=== PATIENT | female | born 1945 | race Caucasian/White ===

== ENCOUNTER → 2019-03-19 13:52 | Outpatient (CLI) | payer MEDICARE, OTHER, SELFPAY ==
--- NOTE | 2019-03-19 | DI.MG.S_ITS ---
BILATERAL DIGITAL SCREENING MAMMOGRAM 3D/2D WITH CAD: 03/19/2019 CLINICAL: Routine screening. Family history of breast cancer. Comparison is made to exams dated: 01/14/2018 mammogram, 12/15/2016 mammogram, and 11/26/2015 mammogram - [facility]. There are scattered fibroglandular elements in both breasts. Current study was also evaluated with a Computer Aided Detection (CAD) system. No significant masses, calcifications, or other findings are seen in either breast. There has been no significant interval change. IMPRESSION: NEGATIVE There is no mammographic evidence of malignancy. A 1 year screening mammogram is recommended. This exam was interpreted at Station ID: [id number]. NOTE: For mammograms, a report in lay terms will be sent to the patient. Approximately 15% of breast malignancies will not be visualized mammographically. In the management of a palpable breast mass, a negative mammogram must not discourage biopsy of a clinically suspicious lesion. Electronically Signed By: Sapna avalos/rafael:03/19/2019 22:14:07 letter sent: Normal Exam ACR BI-RADS Category 1: Negative 3341F
== END ==
PROVIDERS: Visit Provider Internal Medicine
DX: Z12.31 Encounter for screening mammogram for malignant neoplasm of breast (principal); Z80.3 Family history of malignant neoplasm of breast
CPT/HCPCS: 77063; 77067

== ENCOUNTER → 2019-09-01 12:43 | Outpatient (CLI) | payer MEDICARE, OTHER, SELFPAY | PROVIDERS: PCP Student in an Organized Health Care Education/Training Program; Visit Provider Student in an Organized Health Care Education/Training Program | DX: Z78.0 Asymptomatic menopausal state (principal); R29.890 Loss of height; Z82.62 Family history of osteoporosis | CPT/HCPCS: 77080 ==

== ENCOUNTER 2019-11-08 17:27 | Emergency (ER) | payer MEDICARE, OTHER, SELFPAY ==
[2019-11-08 17:37] VITALS: BP 159/94; PULSE 62; RESP 16; TEMP 36.6; O2SAT 99; BMI 24.7
--- NOTE | 2019-11-08 18:35 | ED.WOUNDLAC ---
HPI - Wound/Laceration <SAI Rothman - Last Filed: 11/08/19 18:48> General Chief Complaint: Wound/Laceration Stated Complaint: laceration to thumb of left hand Time Seen by Provider: 11/08/19 17:34 Mode of arrival: Ambulatory Limitations: no limitations History of Present Illness HPI narrative: This is a pleasant 74 year female, nonsmoker, who presents to ED with significant other with chief complain of laceration to left radial aspect of thumb from a knife 30 minutes [employer]. Patient states when she trying to slice a hard cheese, it slipped from her hand and accidently cut her left thumb with a knife which was held by the right hand. Patient states she is able to move her fingers but has difficult time stop it to bleed. She thinks her tetanus immunization is up to date and states will follow-up with her primary care and declined to update this today. Review of Systems <SAI Rothman - Last Filed: 11/08/19 18:48> Review of Systems Narrative: General: Denies fever, chills, fatigue, malaise, sweats. HEENT: Denies sinus pain, ear pain, sore throat, difficulty swallowing, dizziness. Respiratory: Denies dyspnea, cough, wheezing, hemoptysis, sputum. Cardiovascular: Denies chest pain, palpitations, orthopnea, edema. Gastrointestinal: Denies nausea, vomiting, abdominal pain, diarrhea, constipation, melena. : Denies dysuria, frequency, incontinence, hematuria, urinary retention. Musculoskeletal: Denies weakness, joint pain or bony pain. Skin: See HPI Neurologic: Denies weakness, headache, numbness, change in speech, confusion, seizures, incoordination. Psychiatric: No concerning psychosocial issues. 12-point review of systems is negative except for those stated above. Patient History <SAI Rothman - Last Filed: 11/08/19 18:48> Surgical History H/O knee surgery (Acute) Social History Smoking Status: Never smoker Smoking Status: Never smoker alcohol intake frequency: holidays/special occasions only Substance Use Type: does not use Exam <Dank Morgan [facility] - Last Filed: 11/08/19 18:48> Narrative Exam Narrative: General appearance: well developed, well nourished, in no acute distress. Head: normocephalic, atraumatic, no scalp lesions, non-tender. Neck/Thyroid: neck supple, full range of motion, no visible masses or meningeal signs. No JVD, non-tender without lymphadenopathy. Skin: 1.5 cm vertical light laceration on L radial aspect of hand between 1st and 2nd digit with slow bleeding. No suspicious rashes, lesions over visible areas. Warm and dry and appropriate color for ethnicity. Heart: no clubbing, no cyanosis, no edema. S1 and S2 normal. RRR w/o murmurs, clicks, or bruits. Lungs: Breathing even and unlabored. No stridor. No accessory muscles used. Able to speak in full sentences. Chest: normal shape and expansion. Abdomen: non-obese, non-distended. Neurologic: alert and oriented. Cognitive exam, [employer] and PNS grossly intact on informal exam. Psych: good eye contact, normal affect. Initial Vital Signs Initial Vital Signs: Vital Signs Temperature 97.8 F 11/08/19 17:37 Pulse Rate 62 11/08/19 17:37 Respiratory Rate 16 11/08/19 17:37 Blood Pressure 159/94 H 11/08/19 17:37 Pulse Oximetry 99 11/08/19 17:37 Extrem Left upper extremity: hand Details: neuromotor exam normal Details: thumb opposition normal, thumb IP flexion normal and thumb ADduction normal, tendon exam normal Location: of the thumb, vascular exam Details: radial pulse present, normal ROM of fingers and laceration (thumb) <Tramaine Crowley DO - Last Filed: 11/08/19 18:57> Initial Vital Signs Initial Vital Signs: Vital Signs Temperature 97.8 F 11/08/19 17:37 Pulse Rate 62 11/08/19 17:37 Respiratory Rate 16 11/08/19 17:37 Blood Pressure 159/94 H 11/08/19 17:37 Pulse Oximetry 99 11/08/19 17:37 Procedures <Dank MorganYVETTEP - Last Filed: 11/08/19 18:48> Laceration Repair Laceration 1: Site: hand ( radial aspect of thumb) Side (If applicable): left Size (cm): 1.5 Description: linear Depth: simple, single layer Local Anesthetic: lidocaine 1% and with bicarb Amount of anesthesia used (mL): 1.5 Pre-repair: wound explored and irrigated extensively Skin layer closed with: nylon Size (cm): 5-0 Number of sutures: 2 Technique: simple, interrupted Subcutaneous layer closed with: vicryl Scores <SAI Rothman - Last Filed: 11/08/19 18:48> GCS [place] coma scale eye opening: Spontaneous [place] coma scale verbal response: Orientated [place] coma scale motor response: Obey commands [place] coma scale total score: 15 Course <Dank SAI Morgan - Last Filed: 11/08/19 18:48> Orders Ordered: Discontinued Medications Bacitracin (Bacitracin) 1 applic TOP NOW ONE Stop: 11/08/19 17:52 Last Admin: 11/08/19 18:38 Dose: 1 applic Documented by: CINTHIA Lidocaine/Sodium Bicarbonate (Buffered Lidocaine 10 Ml Syr) 10 ml INJ NOW ONE Stop: 11/08/19 17:52 Last Admin: 11/08/19 18:38 Dose: 10 ml Documented by: CINTHIA Vital Signs Vital signs: Vital Signs - 8 hr 11/08/19 17:37 Temperature 97.8 F Pulse Rate 62 Respiratory Rate 16 Blood Pressure 159/94 H Pulse Oximetry 99 <Tramaine Crowley DO - Last Filed: 11/08/19 18:57> Orders Ordered: Discontinued Medications Bacitracin (Bacitracin) 1 applic TOP NOW ONE Stop: 11/08/19 17:52 Last Admin: 11/08/19 18:38 Dose: 1 applic Documented by: CINTHIA Lidocaine/Sodium Bicarbonate (Buffered Lidocaine 10 Ml Syr) 10 ml INJ NOW ONE Stop: 11/08/19 17:52 Last Admin: 11/08/19 18:38 Dose: 10 ml Documented by: CINTHIA Vital Signs Vital signs: Vital Signs - 8 hr 11/08/19 17:37 Temperature 97.8 F Pulse Rate 62 Respiratory Rate 16 Blood Pressure 159/94 H Pulse Oximetry 99 MDM - Wound/Laceration <SAI Rothman - Last Filed: 11/08/19 18:48> Differential Diagnosis Differential diagnosis: Likely laceration Medical Records Attestation: I reviewed the patient's medical records. MDM Narrative Medical decision making narrative: This is a 74 year female who presents to ED with 1.5 cm vertical laceration to the radial aspect of left thumb from a knife. Neurovascular and motor exam was intact on affected thumb. Laceration has been repaired with 2 sutures. Please see procedure note. Patient tolerated the procedure well. Dressed affected finger with bacitracin, bulky dressing and applied finger splint to prevent excessive flexion. Return precautions were discussed with the patient and advised suture removal in 7-10 days. Patient verbalized understanding and agrees with the treatment plan. Discharge Plan Departure Patient Disposition: Home Clinical Impression: Laceration of thumb Qualifiers: Encounter type: initial encounter Damage to nail status: unspecified Foreign body presence: without foreign body Laterality: left Qualified Code(s): S61.012A - Laceration without foreign body of left thumb without damage to nail, initial encounter Discharge Date/Time: 11/08/19 18:50 Instructions: DI for Laceration Repair Activity Restrictions/Additional Instructions: You have been diagnosed with [L thumb laceration which repaired with 2 sutures ]. What to do: Please do not get your wound soaked in the water until suture removal. Keep your dressing intact for next 24 hrs. After then, you could remove your dressing, wash with soap and water. Pat dry with clean paper towel and dress it with antibiotic ointment. You can change dressing as needed and daily. Please monitor for signs and symptoms for infection such as increasing redness, swelling, warmth, pain, fever, purulent discharge. If this occurs, please return to ED or follow up with your primary care physician since your wound may be gotten infected. Please follow up with your primary care provider in 2-3 days for recheck wound. Your suture should be removed [7-10 ] days. This can be done by your primary provider, walk-in clinic or here in ED. Please keep your wound clean, dry and intact all times. Please follow up on Tetanus vaccination. This should be updated within 72hrs after the injury if it has been >10 years. Referrals: Angeles Christy MD [Primary Care Provider] - <Tramaine Crowley DO - Last Filed: 11/08/19 18:57> Sign Out Provider Sign Out Attestation: Dr Crowley Co-Sign Statement: I was available for consultation during this patient's emergency department visit. This chart is signed by myself for administrative purposes only. I did not have direct contact with this patient during this visit. They were seen independently by the APC.
[2019-11-08] MEDS: BACITRACIN OINT 0.9 GM PCKT 1 APPLIC TOP (18:38)
[2019-11-08] MEDS: LIDO 1%/SOD BICARB 8.4% (10ML) 10 ML SYRINGE INJ (18:38)
== END 2019-11-08 18:50 | disposition home or self-care (01) ==
PROVIDERS: Emergency Provider Nurse Practitioner Family; PCP Student in an Organized Health Care Education/Training Program
DX: S61.012A Laceration without foreign body of left thumb without damage to nail, initial encounter (principal); W26.0XXA Contact with knife, initial encounter
CPT/HCPCS: 12001; 99282; 99283

== ENCOUNTER → 2020-07-24 08:54 | Outpatient (CLI) | payer MEDICARE, OTHER, SELFPAY ==
--- NOTE | 2020-07-24 09:13 | DI.MG.S_ITS ---
Patient Name: MARGO ESPINOAS date: 1945 Sex: F Attending Physician: Westley Indications: Date: 07/24/2020 09:07 At the request of: YOLANDA HAYNES Procedure: MM screening mammo BI BILATERAL DIGITAL SCREENING MAMMOGRAM 3D/2D WITH CAD: 07/24/2020 CLINICAL: Routine screening. Family history of breast cancer. Comparison is made to exams dated: 03/19/2019 mammogram - [facility], 01/14/2018 mammogram, and 12/15/2016 mammogram - [facility]. There are scattered fibroglandular elements in both breasts. Current study was also evaluated with a Computer Aided Detection (CAD) system. No significant masses, calcifications, or other findings are seen in either breast. There has been no significant interval change. IMPRESSION: NEGATIVE There is no mammographic evidence of malignancy. A 1 year screening mammogram is recommended. This exam was interpreted at Station ID: [id number]. NOTE: For mammograms, a report in lay terms will be sent to the patient. Approximately 15% of breast malignancies will not be visualized mammographically. In the management of a palpable breast mass, a negative mammogram must not discourage biopsy of a clinically suspicious lesion. Electronically Signed By: Lola junior/rafael:07/27/2020 08:39:53 letter sent: Normal Exam ACR BI-RADS Category 1: Negative 3341F
== END ==
PROVIDERS: PCP Student in an Organized Health Care Education/Training Program; Referring Provider Student in an Organized Health Care Education/Training Program; Visit Provider Student in an Organized Health Care Education/Training Program
DX: Z12.31 Encounter for screening mammogram for malignant neoplasm of breast (principal); Z80.3 Family history of malignant neoplasm of breast
CPT/HCPCS: 77063; 77067

== ENCOUNTER → 2021-07-26 17:30 | Outpatient (CLI) | payer MEDICARE, OTHER, SELFPAY ==
--- NOTE | 2021-07-26 | DI.MG.S_ITS ---
BILATERAL DIGITAL SCREENING MAMMOGRAM 3D/2D WITH CAD: 07/26/2021 CLINICAL: Routine screening. Family history of breast cancer. Comparison is made to exams dated: 07/24/2020 mammogram, 03/19/2019 mammogram - [facility], and 01/14/2018 mammogram - [facility]. There are scattered fibroglandular elements in both breasts. Current study was also evaluated with a Computer Aided Detection (CAD) system. There are benign calcifications in both breasts. No significant masses, calcifications, or other findings are seen in either breast. There has been no significant interval change. IMPRESSION: BENIGN There is no mammographic evidence of malignancy. A 1 year screening mammogram is recommended. This exam was interpreted at Station ID: [id number]. NOTE: For mammograms, a report in lay terms will be sent to the patient. Approximately 15% of breast malignancies will not be visualized mammographically. In the management of a palpable breast mass, a negative mammogram must not discourage biopsy of a clinically suspicious lesion. Electronically Signed By: Atul Summers acr/rafael:07/27/2021 08:38:25 letter sent: Normal Exam ACR BI-RADS Category 2: Benign Finding(s) 3342F
== END ==
PROVIDERS: PCP Internal Medicine; Referring Provider Internal Medicine; Visit Provider Internal Medicine
DX: Z12.31 Encounter for screening mammogram for malignant neoplasm of breast (principal); Z80.3 Family history of malignant neoplasm of breast
CPT/HCPCS: 77063; 77067

== ENCOUNTER → 2022-07-04 11:44 | Outpatient (CLI) | payer MEDICARE, OTHER, SELFPAY | PROVIDERS: PCP Internal Medicine; Referring Provider Internal Medicine; Visit Provider Internal Medicine | DX: Z78.0 Asymptomatic menopausal state (principal); Z13.820 Encounter for screening for osteoporosis; Z92.23 Personal history of estrogen therapy | CPT/HCPCS: 77080 ==

== ENCOUNTER → 2022-08-28 10:53 | Outpatient (CLI) | payer MEDICARE, OTHER, SELFPAY ==
--- NOTE | 2022-08-28 | DI.MG.S_ITS ---
BILATERAL DIGITAL SCREENING MAMMOGRAM 3D/2D WITH CAD: 08/28/2022 CLINICAL: Routine screening. Family history of breast cancer. Comparison is made to exams dated: 07/26/2021 mammogram, 07/24/2020 mammogram, and 03/19/2019 mammogram - [facility]. There are scattered areas of fibroglandular density in both breasts (category b / 25%-50% glandular tissue). Current study was also evaluated with a Computer Aided Detection (CAD) system. There are benign calcifications in both breasts. No significant masses, calcifications, or other findings are seen in either breast. There has been no significant interval change. IMPRESSION: BENIGN There is no mammographic evidence of malignancy. A 1 year screening mammogram is recommended. Based on the Tyrer Cuzick model (a risk assessment model) the patient's lifetime risk is 7.3% and her 10 year risk is 0.0%. According to the ACR, ACS, and NCCN guidelines, an annual breast MRI exam along with mammogram is recommended if the patient's lifetime risk is 20% or greater. This exam was interpreted at Station ID: [id number]. NOTE: For mammograms, a report in lay terms will be sent to the patient. Approximately 15% of breast malignancies will not be visualized mammographically. In the management of a palpable breast mass, a negative mammogram must not discourage biopsy of a clinically suspicious lesion. Electronically Signed By: Sapna avalos/rafael:08/28/2022 13:38:22 letter sent: Normal Exam ACR BI-RADS Category 2: Benign Finding(s) 3342F
== END ==
PROVIDERS: PCP Internal Medicine; Referring Provider Internal Medicine; Visit Provider Internal Medicine
DX: Z12.31 Encounter for screening mammogram for malignant neoplasm of breast (principal); Z80.3 Family history of malignant neoplasm of breast
CPT/HCPCS: 77063; 77067

== ENCOUNTER → 2023-04-18 09:56 | Outpatient (CLI) | payer MEDICARE, OTHER, SELFPAY ==
[2023-04-18 11:28] LABS: Hematocrit 38.6 % (36-46); Hemoglobin 12.9 g/dL (12.0-16.0); Mean Corpuscular HGB Conc 33.4 % (30-36); Mean Corpuscular Hemoglobin 31.3 PG (26-34); Mean Corpuscular Volume 93.8 fL (80-100); Platelet Count 225 X10^3/uL (150-400); Red Blood Cell Count 4.11 X10^6/uL (4.0-5.2); Red Cell Distribution Width 13.6 % (11.6-14.8); White Blood Cell Count 5.1 X10^3/uL (4.5-11.0)
[2023-04-18 12:20] LABS: Alanine Aminotransferase 24 IU/L (<35); Albumin 4.4 g/dL (3.5-5.0); Albumin Globulin Ratio 1.5 (1.0-2.8); Alkaline Phosphatase 69 U/L (38-126); Aspartate Aminotransferase 34 IU/L (14-36); BUN Creatinine Ratio 28.8 (6-22); Bilirubin Total 0.5 mg/dL (0.2-1.3); Blood Urea Nitrogen 23 mg/dL (7-17); Carbon Dioxide 32 mmol/L (22-32); Chloride 100 mmol/L (98-107); Cholesterol 241 mg/dL (140-199); Estimated Glomerular Filt Rate > 60 mL/min (>60); Glucose 100 mg/dL (80-110); HDL Cholesterol 85 mg/dL (40-60); HEMOLYSIS < 15 (0-50); LDL Cholesterol Calculated 135 mg/dL (<100); Potassium 4.1 mmol/L (3.4-5.1); Sodium 138 mmol/L (137-145); Total Protein 7.4 g/dL (6.3-8.2); Triglycerides 103 mg/dL (35-150)
[2023-04-18 13:00] LABS: TSH w/ Reflex to FT4 2.21 uIU/mL (0.47-4.68)
== END ==
PROVIDERS: PCP Internal Medicine; Referring Provider Internal Medicine; Visit Provider Internal Medicine
DX: E78.2 Mixed hyperlipidemia (principal); G25.81 Restless legs syndrome
CPT/HCPCS: 36415; 80053; 80061; 84443; 85027

== ENCOUNTER 2023-06-12 09:23 | Day surgery (SDC) | payer MEDICARE, OTHER, SELFPAY ==
[2023-06-12 09:43] VITALS: BMI 23.1
[2023-06-12] MEDS: FLEETS ENEMA 1 EACH PR (09:49)
[2023-06-12 10:08] VITALS: BP 127/79; PULSE 68; RESP 16; TEMP 36.6; O2SAT 97
[2023-06-12] MEDS: LACTATED RINGERS 1,000 ML 42 ML IV (10:09)
--- NOTE | 2023-06-12 10:10 | SUR.PREOP ---
Patient reported clear stool last night but was brown today. Dr. Escoto notified, enema ordered and provided. Minimal clear output noted.
--- NOTE | 2023-06-12 10:54 | PM.HP.1 ---
History of Present Illness History of Present Illness Date Patient Seen: 06/12/23 Time Patient Seen: 10:54 Chief complaint: Screening Colonoscopy Narrative: 77-year-old woman here for screening colonoscopy. Last colonoscopy 10 years ago normal. No family history of intestinal malignancy. No abdominal pain nausea vomiting blood per rectum unintentional weight loss. [facility] Medical History Allergic rhinitis Cataracts, bilateral Chicken pox (~1949) Hearing loss History of fractured pelvis Macular degeneration (~2018) Mixed hyperlipidemia Osteoarthritis of left knee RLS (restless legs syndrome) Wears glasses Surgical History Anesthesia H/O knee surgery (~2017) History of cataract removal with insertion of prosthetic lens (~2014) History of hemorrhoidectomy (~2011) Family History Father Congestive heart failure Brother Cancer Sister Macular degeneration Grandfather Flu Grandmother Cancer Social History details: (Damon), 3 children, 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, identical twin sister household members: spouse Smoking Status: Never smoker alcohol intake: current Meds Home Medications and Allergies Home Medications Medication Instructions Recorded Confirmed Type cetirizine 10 mg tablet (Aller-Boy) 10 mg PO DAILY PRN Allergy Symptoms 04/18/23 06/12/23 History cholecalciferol (vitamin D3) 50 50 mcg PO DAILY 04/18/23 06/12/23 History mcg (2,000 unit) capsule magnesium 210 mg PO DAILY 04/18/23 04/18/23 History multivitamin 1 tab PO DAILY 04/18/23 06/12/23 History pravastatin 10 mg tablet 10 mg PO BEDTIME #90 tabs 04/18/23 06/12/23 Rx vitamins A,C,L-gumt-ldlygg 4,296 1 cap PO BID 04/18/23 06/12/23 History mcg-226 mg-90 mg capsule (ICaps AREDS) sodium,potassium,mag sulfates 17.5 See Rx Instructions PO .COMPLEX 04/30/23 06/12/23 Rx gram-3.13 gram-1.6 gram oral soln #354 mL (Suprep Bowel Prep Kit) Allergies Allergy/AdvReac Type Severity Reaction Status Date / Time latex Allergy Mild Rash Verified 06/12/23 09:38 Exam Vital Signs (past 8 hours): - 06/12/23 10:08 Temperature 97.8 F Pulse Rate 68 Respiratory Rate 16 Blood Pressure 127/79 Pulse Oximetry 97 Oxygen Delivery Method Room Air Oxygen Delivery Method Room Air Narrative Exam Narrative: General adult woman alert oriented no acute distress Abdomen soft nontender nondistended Assessment & Plan Assessment & Plan narrative: The patient requires colorectal screening and colonoscopy is recommended. Technical details were discussed. Risks, benefits, alternatives explained. Risks including but not limited to myocardial infarction, aspiration, bleeding, pain, missed lesion, incomplete examination, need for further radiographic studies, colonic perforation, and need for major abdominal surgery were discussed. All questions were answered to their satisfaction, and they are in agreement with this plan.
[2023-06-12 11:24] VITALS: BP 120/73; PULSE 61; RESP 15; TEMP 36.4; O2SAT 98
[2023-06-12 11:30] VITALS: BP 109/66; PULSE 57; RESP 22; O2SAT 98
--- NOTE | 2023-06-12 11:33 | PM.OP.COLON ---
Operative Date/Time/Diagnoses Date of procedure: 06/12/23 Time of procedure: 11:33 Pre-op diagnosis: Colorectal screening Post-op diagnosis: same Procedure & Clinicians Study performed: Colonoscopy Same procedure as scheduled: Yes Indications: Colorectal screening Surgeon: Francisco J Escoto Procedure Notes Procedure in detail: The history and physical was performed/updated and the patient is ASA class is 2. The procedure was discussed in detail with the patient. Potential risks complications including infection, bleeding, missed diagnosis, perforation, need for surgery, and were explained. Their questions were answered and informed consent was obtained. Patient was brought to the procedure room and placed standard monitoring equipment. The patient's vital signs were monitored continuously throughout the entire procedure. Prior to starting time-out was performed. The patient was placed in the left lateral recumbent position. Procedural sedation was administered by anesthesia. Examination began with a thorough inspection of the perianal area there was no evidence of fissures, fistulae, external hemorrhoids or cutaneous malignancy. The colonoscopy scope was then placed into the anal canal and was advanced to the cecum, which was identified by the ileocecal valve, the appendiceal orifice and the confluence of the taenia. The scope was then slowly withdrawn examining colon thoroughly in all directions, irrigating it of any residual stool. Normal healthy colon. No masses or polyps. The patient tolerated the procedure well. They will be discharged once criteria are met. The prep was of good/excellent quality. The withdrawl time was 7 minutes. Specimen(s): none sent Impression: Normal colonoscopy Post-procedure Plan for aftercare: No need for further colonoscopy unless symptomatic. Disposition: same day surgery
[2023-06-12 11:35] VITALS: BP 117/69; PULSE 65; RESP 19; O2SAT 98
[2023-06-12 11:37] VITALS: BP 117/69; PULSE 61; RESP 19; O2SAT 100
== END 2023-06-12 12:00 | disposition home or self-care (01) ==
PROVIDERS: PCP Internal Medicine; Referring Provider Surgery; Visit Provider Surgery
PROC: 0DJD8ZZ Inspection of Lower Intestinal Tract, Via Natural or Artificial Opening Endoscopic (ICD-10-PCS; CPT 45378; principal; 2023-06-12 10:30)
DX: Z12.11 Encounter for screening for malignant neoplasm of colon (principal)
CPT/HCPCS: G0121; J2704

== ENCOUNTER → 2023-09-01 08:55 | Outpatient (CLI) | payer MEDICARE, OTHER, SELFPAY ==
--- NOTE | 2023-09-01 | DI.MG.S_ITS ---
BILATERAL DIGITAL SCREENING MAMMOGRAM 3D/2D WITH CAD: 09/01/2023 CLINICAL: Routine screening. Family history of breast cancer. Comparison is made to exams dated: 08/28/2022 mammogram, 07/26/2021 mammogram, and 07/24/2020 mammogram - [facility]. There are scattered areas of fibroglandular density in both breasts (category b / 25%-50% glandular tissue). Current study was also evaluated with a Computer Aided Detection (CAD) system. There are benign calcifications in both breasts. No significant masses, calcifications, or other findings are seen in either breast. There has been no significant interval change. IMPRESSION: BENIGN There is no mammographic evidence of malignancy. A 1 year screening mammogram is recommended. Based on the Tyrer Cuzick model (a risk assessment model) the patient's lifetime risk is 5.9% and her 10 year risk is 0.0%. According to the ACR, ACS, and NCCN guidelines, an annual breast MRI exam along with mammogram is recommended if the patient's lifetime risk is 20% or greater. This exam was interpreted at Station ID: [id number]. NOTE: For mammograms, a report in lay terms will be sent to the patient. Approximately 15% of breast malignancies will not be visualized mammographically. In the management of a palpable breast mass, a negative mammogram must not discourage biopsy of a clinically suspicious lesion. Electronically Signed By: Michael roche/rafael:09/01/2023 10:38:15 letter sent: Normal Exam ACR BI-RADS Category 2: Benign Finding(s) 3342F
== END ==
PROVIDERS: PCP Internal Medicine; Referring Provider Internal Medicine; Visit Provider Internal Medicine
DX: Z12.31 Encounter for screening mammogram for malignant neoplasm of breast (principal); Z80.3 Family history of malignant neoplasm of breast
CPT/HCPCS: 77063; 77067

== ENCOUNTER → 2024-04-24 11:03 | Outpatient (CLI) | payer MEDICARE, OTHER, SELFPAY ==
[2024-04-24 11:48] LABS: Aspartate Aminotransferase 41 IU/L (14-36); BUN Creatinine Ratio 30.1 (6-22); Blood Urea Nitrogen 22 mg/dL (7-17); Calcium 9.1 mg/dL (8.4-10.2); Carbon Dioxide 30 mmol/L (22-32); Chloride 104 mmol/L (98-107); Cholesterol 210 mg/dL (140-199); Estimated Glomerular Filt Rate > 60 mL/min (>60); Glucose 92 mg/dL (80-110); HEMOLYSIS < 15 (0-50); Potassium 4.4 mmol/L (3.4-5.1); Sodium 138 mmol/L (137-145); Triglycerides 73 mg/dL (35-150)
[2024-04-24 12:49] LABS: HDL Cholesterol 112 mg/dL (40-60); LDL Cholesterol Calculated 83 mg/dL (<100)
== END ==
PROVIDERS: PCP Internal Medicine; Referring Provider Internal Medicine; Visit Provider Internal Medicine
DX: E78.2 Mixed hyperlipidemia (principal)
CPT/HCPCS: 36415; 80048; 80061; 84450

== ENCOUNTER → 2024-09-11 11:11 | Outpatient (CLI) | payer MEDICARE, OTHER, SELFPAY ==
--- NOTE | 2024-09-11 | DI.MG.S_ITS ---
BILATERAL DIGITAL SCREENING MAMMOGRAM 3D/2D WITH CAD: 09/11/2024 CLINICAL: Routine screening. Family history of breast cancer. Comparison is made to exams dated: 09/01/2023 mammogram, 08/28/2022 mammogram, and 07/26/2021 mammogram - [facility]. There are scattered areas of fibroglandular density (category b / 25%-50% glandular tissue). Current study was also evaluated with a Computer Aided Detection (CAD) system. There are benign calcifications in both breasts. No significant masses, calcifications, or other findings are seen in either breast. There has been no significant interval change. IMPRESSION: BENIGN There is no mammographic evidence of malignancy. A 1 year screening mammogram is recommended. Based on the Tyrer Cuzick model (a risk assessment model) the patient's lifetime risk is 5.1% and her 10 year risk is 0.0%. According to the ACR, ACS, and NCCN guidelines, an annual breast MRI exam along with mammogram is recommended if the patient's lifetime risk is 20% or greater. This exam was interpreted at Station ID: [id number]. NOTE: For mammograms, a report in lay terms will be sent to the patient. Approximately 15% of breast malignancies will not be visualized mammographically. In the management of a palpable breast mass, a negative mammogram must not discourage biopsy of a clinically suspicious lesion. Electronically Signed By: Michael roche/rafael:09/12/2024 08:12:36 letter sent: Normal Exam ACR BI-RADS Category 2: Benign
== END ==
PROVIDERS: PCP Internal Medicine; Referring Provider Internal Medicine; Visit Provider Internal Medicine
DX: Z12.31 Encounter for screening mammogram for malignant neoplasm of breast (principal); Z80.3 Family history of malignant neoplasm of breast
CPT/HCPCS: 77063; 77067

== ENCOUNTER → 2025-01-22 09:26 | Outpatient (CLI) | payer MEDICARE, OTHER, SELFPAY ==
--- NOTE | 2025-01-22 09:27 | DI.RAD.S_ITS ---
PROCEDURE: XR HIP W PEL IF DONE RT 2V INDICATIONS: right hip pain TECHNIQUE: AP pelvis with lateral view(s) of the the right hip(s). COMPARISON: None. FINDINGS: Bones: There is mild deformity of the left inferior pubic ramus which is likely an old healed fracture SI and hip joints: Severe right and mild left hip degenerative change appreciated. Both SI joints are normal. Moderate L5-S1 degenerative disc disease noted. Soft tissues: No soft tissue swelling, calcification or mass. IMPRESSION: Severe right hip degeneration Dictated by: Damon Benoit M.D. on 01/22/2025 at 12:09 Approved by: Damon Benoit M.D. on 01/22/2025 at 12:10
== END ==
PROVIDERS: PCP Internal Medicine; Referring Provider Internal Medicine; Visit Provider Internal Medicine
DX: M46.1 Sacroiliitis, not elsewhere classified (principal); M16.11 Unilateral primary osteoarthritis, right hip; M51.379 Other intervertebral disc degeneration, lumbosacral region without mention of lumbar back pain or lower extremity pain; M25.551 Pain in right hip
CPT/HCPCS: 73502

== ENCOUNTER → 2025-02-18 09:35 | Outpatient (CLI) | payer MEDICARE, OTHER, SELFPAY | PROVIDERS: Family Provider Internal Medicine; PCP Internal Medicine; Referring Provider Internal Medicine; Visit Provider Internal Medicine | DX: R00.2 Palpitations (principal) | CPT/HCPCS: 93246; 93248 ==

== ENCOUNTER 2025-03-17 13:45 | Outpatient (RCR) | payer MEDICARE, OTHER, SELFPAY ==
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
== END 2025-05-25 10:56 | disposition home or self-care (01) ==
LOC: PHYS 13:45
PROVIDERS: Family Provider Internal Medicine; PCP Internal Medicine; Referring Provider Internal Medicine; Visit Provider Internal Medicine
DX: M46.1 Sacroiliitis, not elsewhere classified (principal); M25.551 Pain in right hip; R53.1 Weakness; R26.2 Difficulty in walking, not elsewhere classified
CPT/HCPCS: 97110; 97116; 97140; 97161; 97535

== ENCOUNTER → 2025-04-21 15:19 | Outpatient (CLI) | payer MEDICARE, OTHER, SELFPAY ==
[2025-04-21 16:21] LABS: Add Manual Diff / Slide Review NO; Basophils Absolute Auto 0 /uL (0-100); Basophils Percent Auto 0.4 % (0-2); Eosinophils Absolute Auto 200 /uL (0-450); Eosinophils Percent Auto 3.7 % (2-4); Hematocrit 39.4 % (36-46); Hemoglobin 13.2 g/dL (12.0-16.0); Lymphocytes Absolute Auto 2000 /uL (1100-4500); Lymphocytes Percent Auto 32.1 % (25-40); Mean Corpuscular HGB Conc 33.7 % (30-36); Mean Corpuscular Hemoglobin 32.1 PG (26-34); Mean Corpuscular Volume 95.5 fL (80-100); Monocytes Absolute Auto 500 /uL (0-900); Monocytes Percent Auto 7.8 % (3-14); Neutrophils Absolute Auto 3600 /uL (1500-7000); Platelet Count 250 X10^3/uL (150-400); Red Blood Cell Count 4.12 X10^6/uL (4.0-5.2); Red Cell Distribution Width 13.6 % (11.6-14.8); White Blood Cell Count 6.4 X10^3/uL (4.5-11.0)
[2025-04-21 16:54] LABS: BUN Creatinine Ratio 33.3 (6-22); Blood Urea Nitrogen 31 mg/dL (7-17); Calcium 9.7 mg/dL (8.4-10.2); Carbon Dioxide 29 mmol/L (22-32); Chloride 100 mmol/L (98-107); Estimated Glomerular Filt Rate > 60 mL/min (>60); Glucose 88 mg/dL (70-99); HEMOLYSIS < 15 (0-50); Potassium 4.3 mmol/L (3.4-5.1); Sodium 138 mmol/L (137-145)
[2025-04-21 17:03] LABS: Prealbumin 27.4 mg/dL (17.6-36.0)
[2025-04-21 17:09] LABS: Vitamin D 25 Hydroxy (D3) 80.9 ng/mL (30.0-100.0)
== END ==
PROVIDERS: Family Provider Internal Medicine; PCP Internal Medicine; Referring Provider Orthopaedic Surgery Adult Reconstructive Orthopaedic Surgery; Visit Provider Orthopaedic Surgery Adult Reconstructive Orthopaedic Surgery
DX: Z01.818 Encounter for other preprocedural examination (principal); E11.9 Type 2 diabetes mellitus without complications; E55.9 Vitamin D deficiency, unspecified
CPT/HCPCS: 36415; 80048; 82040; 82306; 83036; 84134; 85025

== ENCOUNTER → 2025-04-22 10:19 | Outpatient (CLI) | payer MEDICARE, OTHER, SELFPAY ==
--- NOTE | 2025-04-22 10:33 | EKG_ITS ---
[address] [address] Test Date: 2025-04-22 Pat Name: Xochitl Holly Department: [facility] Room: Gender: Female Histologic Aide: ALMA : 1945 Requested By: Order Number: [id number] Reading MD: Eagle Johns Measurements Intervals [place] Rate: 58 P: 63 CO: 206 QRS: 22 QRSD: 92 T: 63 QT: 426 QTc: 418 Interpretive Statements Sinus bradycardia RSR' or QR pattern in V1 suggests right ventricular conduction delay Electronically Signed On 04-23-2025 17:29:52 PDT by Eagle Johns
== END ==
PROVIDERS: Family Provider Internal Medicine; PCP Internal Medicine; Referring Provider Orthopaedic Surgery Adult Reconstructive Orthopaedic Surgery; Visit Provider Orthopaedic Surgery Adult Reconstructive Orthopaedic Surgery
DX: Z01.818 Encounter for other preprocedural examination (principal)
CPT/HCPCS: 93005

== ENCOUNTER → 2025-06-24 12:36 | Outpatient (CLI) | payer MEDICARE, OTHER, SELFPAY ==
[2025-06-24 13:23] LABS: Blood Urea Nitrogen 24 mg/dL (7-17); Calcium 9.5 mg/dL (8.4-10.2); Carbon Dioxide 29 mmol/L (22-32); Chloride 99 mmol/L (98-107); Cholesterol 194 mg/dL (140-199); Estimated Glomerular Filt Rate > 60 mL/min (>60); Glucose 146 mg/dL (70-99); HDL Cholesterol 83 mg/dL (40-60); Potassium 4.3 mmol/L (3.4-5.1); Sodium 138 mmol/L (137-145); Triglycerides 113 mg/dL (35-150)
[2025-06-24 13:24] LABS: HEMOLYSIS 58 (0-50)
== END ==
PROVIDERS: Family Provider Internal Medicine; PCP Internal Medicine; Referring Provider Internal Medicine; Visit Provider Internal Medicine
DX: E78.2 Mixed hyperlipidemia (principal); I47.10 Supraventricular tachycardia, unspecified
CPT/HCPCS: 36415; 80048; 80061

== ENCOUNTER 2025-07-13 08:48 | Day surgery (SDC) | payer MEDICARE, OTHER, SELFPAY ==
[2025-07-06 08:38] VITALS: BMI 23.6
[2025-07-13] VITALS (13 sets, daily range): BP systolic 97–151; BP diastolic 51–82; PULSE 56–73; RESP 12–20; TEMP 36.2–36.5; O2SAT 95–100; BMI 23.6
--- NOTE | 2025-07-13 | DI.RAD.S_ITS ---
PROCEDURE: XR HIP W PEL IF DONE RT 2V INDICATIONS: RIGHT MARGOT TECHNIQUE: 3 fluoroscopic images obtained in the operating room COMPARISON: [facility], [facility], XR HIP W PEL IF DONE RT 2V, 01/22/2025, 9:27. IMPRESSION: Right total hip arthroplasty with unremarkable appearance. Dictated by: Mendel Escalante M.D. on 07/13/2025 at 16:44 Approved by: Mendel Escalante M.D. on 07/13/2025 at 16:45
--- NOTE | 2025-07-13 06:00 | DI.RAD.S_ITS ---
PROCEDURE: XR HIP W PEL IF DONE RT 2V INDICATIONS: MARGOT TECHNIQUE: AP pelvis and lateral view of the hip acquired. COMPARISON: None. FINDINGS: Bones: Patient is status post right hip arthroplasty, with hardware components in expected positions. The hip joint appears congruent. The visualized bony structures appear intact. Soft tissues: Overlying postoperative changes are noted. No suspicious soft tissue densities. IMPRESSION: Expected post-operative appearance of a hip arthroplasty. Dictated by: Ada Sarmiento M.D. on 07/13/2025 at 13:47 Approved by: Ada Sarmiento M.D. on 07/13/2025 at 13:47
[2025-07-13] MEDS: LACTATED RINGERS 1,000 ML 42 ML IV ×2 (09:06→12:43)
[2025-07-13] MEDS: ACETAMINOPHEN 325 MG TABLET 975 MG PO (09:06)
[2025-07-13] MEDS: MELOXICAM 7.5 MG TABLET 15 MG PO (09:07)
--- NOTE | 2025-07-13 10:44 | PM.PREOP ---
Pre-operative Note Interval Note History & Physical reviewed/Exam performed by Physician: Yes Changes to H&P: No
[2025-07-13] MEDS: TRANEXAMIC ACID 1,000 MG VIAL 1000 MG INJ ×2 (11:05→12:44)
--- NOTE | 2025-07-13 11:36 | SUR.OPER ---
Patient supine on padded [place] table, arms on padded arm boards at <90, both legs secured in padded traction boots and positioned per surgeon, padded post at patient's groin, pressure points checked and padded. Pillow under head.
[2025-07-13] MEDS: KETOROLAC 30 MG/ML VIAL INJ (11:44)
--- NOTE | 2025-07-13 12:44 | PM.OP.1 ---
Operative Date/Time/Diagnoses Date of procedure: 07/13/25 Time of procedure: 10:45 Pre-op diagnosis: Right hip arthritis Post-op diagnosis: same Procedure & Clinicians Procedure: Right total hip arthroplasty Same procedure(s) as scheduled: Yes Surgeon: Puneet Willis Yard Jacker: Consuelo Sarmiento Anesthesia Type: Spinal, Sedation and Local Operative Notes Findings: Severe arthritis Applied: implant(s) Estimated Blood Loss (mL): 200 Procedure in detail: 1. Right Uncemented Direct Anterior Robert Total Hip Arthroplasty (38779) 2. Computer-Assisted Musculoskeletal Surgical Navigational Orthopedic Procedure Using Fluoroscopic Image Guidance (0054T) Implants: G7 PPS size 52 cup? Z1 femoral stem size 3 high offset? 36 mm +0 ceramic femoral head? Procedure Summary: This 79-year-old female patient had a preoperative DEXA scan indicating a T-score of 0.9 so despite her age I anticipated she would have robust bone quality and this was in fact the case. I therefore utilized uncemented fixation with a triple taper collared stem. I was able to achieve femoral exposure without the need for accessory releases of the conjoined tendon. With her initially trials which corresponded to her preoperative templated implants she had appropriate offset and leg length sabianism as well as good stability so those implants were used. Procedure in Detail: This patient was seen preoperatively and evaluated for hip pain which was refractory to numerous nonoperative treatment modalities. Their hip pain correlated with radiographic changes demonstrating significant degeneration in the hip joint. The risks and benefits of continued nonoperative management versus operative management were discussed at length and all of the patient?s questions were answered. Additional educational materials providing further details beyond our discussion in clinic were provided via a publicly available patient education video which included the incidence of medical complications associated with total hip arthroplasty, reasons for revision following total hip arthroplasty, and patient satisfaction rates following total hip arthroplasty. With this understanding of the risks inherent to the procedure, the patient elected to move forward with operative management. Following preoperative optimization, the patient was scheduled for surgery. The patient was met in the preoperative holding area the day of the procedure and all questions were answered. The patient?s nares were swabbed in order to decolonize them from MRSA. Informed consent was signed and the right limb was marked with indelible ink.? The patient was brought back to the operating room where anesthesia was induced. The patient was transferred to the [place] table and all bony prominences were padded. The operative site was prepped and draped in the usual sterile fashion. Prior to incision, tranexamic acid and cefazolin were administered. Operative templating images were displayed demonstrating the anticipated implant sizes and correct operative extremity. A timeout procedure was performed verifying the patient?s identity, medical comorbidities, allergies, relevant medications, anesthesia type and the surgical plan. All present were in agreement. The assistance of a physician res habilitation assistant was required for positioning, room setup, soft tissue retraction and wound closure. Without this assistance, the procedure would have been significantly more challenging and time consuming.?? A direct anterior approach to the hip was utilized. This was performed with a longitudinal incision through a Heuter interval. The incision was planned 2 cm distal and 2 cm lateral to the ASIS extending towards the lateral patella, in line with the muscle body of the TFL. Following incision, the subcutaneous tissue was dissected while taking care to avoid injury to the lateral femoral cutaneous nerve. The fascia overlying the TFL was identified by dissecting off the overlying fat and identifying perforating vessels to the TFL. The TFL fascia was incised and dissected away from the medial border of the TFL. A retractor was placed over the superior femoral neck between the abductors and the hip capsule and used to reflect the TFL laterally. A [place] self-retainer was then placed in the distal aspect of the wound between the TFL and the rectus femoris. This was tensioned to open up the direct anterior interval and the lateral circumflex vessels were identified and coagulated using electrocautery. The floor of the TFL fascia was incised, exposing the pericapsular fat overlying the hip capsule. A second cobra retractor was placed on the inferior femoral neck. A retractor was placed on the anterior wall of the acetabulum and used to tension the reflected head of rectus femoris, which was then released in order to limit soft tissue tension. A capsulotomy was made in the midline of the anterior hip capsule in line with the femoral neck ending at the vastus tubercle. The anterior retractor was removed as soon as the capsulotomy was completed in order to limit the amount of time that a soft tissue retractor remained on the anterior wall and limit tension on the femoral nerve. Tag stitches were placed in the superior and inferior leaflets of the hip capsule. An [place] soft tissue retractor was introduced over the tag stitches and tensioned in the interval between the rectus femoris and the TFL in order to retract and protect those muscles. The cobra retractors were replaced intracapsularly, with one over the superior neck in the pocket created by the base of the greater trochanter and the other on the femoral head. The capsulotomy was extended laterally to the base of the greater trochanter and medially to the lesser trochanter. This required externally rotating the hip. Once the lesser trochanter had been identified, a neck cut was planned according to measurements from preoperative templating. A ruler was cut at the length measured between the superior aspect of the lesser trochanter and the collar of the prosthesis. This line was extended towards the inferior aspect of the lateral cobra retractor to plan a cut which would leave minimal residual femoral neck laterally. The neck was cut at 60 degrees of external rotation along that line. A second cut was performed to remove a large napkin ring and facilitate head extraction. The napkin ring cut and femoral head were removed.?? A broad anterior wall retractor was placed between the labrum and the anterior capsule so that the anterior capsule would prevent capturing and pinching the femoral nerve anteriorly. An additional retractor was placed on the posterior wall. External rotation and traction were applied through the [place] table so that the cut surface of the femoral neck would not restrict access to the acetabulum. The labrum was excised sharply and the pulvinar was excised with electrocautery to limit bleeding from branches of the obturator artery. Acetabular reamers were selected based on preoperative templating and measurements of the excised femoral head. These were introduced into the acetabulum. Fluoroscopy was utilized to replicate a standing AP pelvis radiograph by centering over the pelvis, rotating until there was appropriate symmetry between the obturator foramen, and introducing caudal tilt to match the position of the pubic symphysis relative to the sacrococcygeal junction according to the patient?s anatomy. Once satisfied with the reaming depth corresponding to the preoperative template and the pinch fit between the columns, an appropriate sized acetabular cup was selected which would provide 1 mm of press-fit. This cup was introduced and manipulated until appropriate abduction and anteversion angles were obtained with careful attention to appropriate abduction and anteversion angles as evaluated by the position of the cup relative to the anterior and posterior flores of the acetabulum and the AP fluoroscopy which recreated the patient?s standing radiograph. The cup was impacted into place. Peripheral osteophytes were removed. The acetabular liner was then placed with care to ensure locking of the locking mechanism. Attention was then turned to the femur. All retractors were removed, traction was released, a retractor was placed in the interval between the hip capsule and the gluteus minimus. The lateral capsule was released using electrocautery. Traction was released and a [place] hook was placed posteriorly around the proximal femur at the level of the vastus ridge. The table height was lowered in order to restrict the tension on the anterior structures during hip hyperextension to limit the risk of femoral nerve palsy. With traction off and the hip at 90 degrees of external rotation, the hip was hyperextended and adducted while manually elevating the femur away from the acetabulum with the [place] hook to avoid hooking the greater trochanter on the pelvis. An asymmetric retractor was placed over the calcar and a broad double-pronged retractor was placed over the greater trochanter. The tag stitch capturing the lateral leaflet of the capsule was moved to the medial side, leaving the conjoined and piriformis tendons isolated in the face of the greater trochanter. The hip was externally rotated and elevated. A release of the conjoined tendon was not necessary in order to obtain adequate exposure for broaching. The canal was opened with an opening broach and a rasp was used to remove cancellous bone. A rongeur was used to remove the residual lateral bone at the base of the greater trochanter to avoid placing the stem in varus. The femur was then broached to the appropriate sized stem yielding good rotational fit and fill of the canal as well as appropriate version of the stem trial. Neck and head trials were placed, all retractors were removed and the hip was returned to neutral abduction and extension. I then reduced the hip and manually trialed it before changing surgical gloves. Initial trialing was performed with a size 3 broach, a high offset neck and a +0 head. I initially manually externally rotated the hip and found no instability with maximum external rotation of 130?. I then locked the hip in 45 degrees of external rotation and dropped it to the floor with traction off which demonstrated no instability. The ortho grid contralateral hip workflow was utilized to overlay the nonoperative side relative to the operative side indicating appropriate offset and leg length sabianism with the trialed implants. AP and lateral hip fluoroscopic images were obtained to evaluate the broach size which demonstrated good canal fill. The hip was dislocated and I returned to the broaching position. Based on my evaluation during initial trialing I planned to place these definitive implants. The definitive stem was placed and the trunnion was cleaned and dried. I placed a ceramic head onto the trunnion and impacted it into place on the [place] taper.?? All retractors were removed and the hip was reduced. A dilute mixture of betadine and peroxide was used to bathe the soft tissues during final fluoroscopic assessment. Appropriate component positioning was confirmed on an overlay on the ortho grid software with the nonoperative side relative to the operative side indicating appropriate leg length and offset sabianism. Appropriate stem fill was evaluated on AP and lateral hip radiographs. No previously unrecognized fractures were identified on these radiographs. There was no hip instability with maximum (130?) external rotation as well as a 45 degree drop test. The hip was copiously irrigated with pulse lavage. The capsule was closed with absorbable interrupted suture. The TFL fascia was closed with barbed suture while carefully protecting the lateral femoral cutaneous nerve from entrapment. A mixture of Ropivacaine, Epinephrine and Toradol was infiltrated throughout the soft tissues. The skin was closed with 2-0 and 3-0 sutures. Surgical glue was applied and a soft dressing was placed.??The sponge, instrument and needle counts were reported as being correct at the end of the case.??No obvious complications occurred. The patient was transferred from the [place] table back to a stretcher. The patient emerged from anesthesia without difficulty and was taken to the PACU in a stable condition.? Plan for aftercare: No hip precautions Weightbearing as tolerated Aspirin 81 twice per day for DVT prophylaxis Anticipate discharge home today Multimodal pain regimen with no IV opioids ordered Follow up at [facility] in 2 weeks Complications: none Post-operative Condition: stable Disposition: PACU
[2025-07-13] MEDS: BENZOCAINE/MENTHOL 1 LOZ PKT 1 EACH PO (13:54)
--- NOTE | 2025-07-13 16:34 | P.PN_ITS ---
Subjective Subjective Interval history: I checked on Xochitl postoperatively. She is resting comfortably in her hospital bed. Her spinal has now worn off and she is able to flex and extend her hallux and ankle on the operative side as well as maintain active knee extension. Her pain is well-controlled. Her dressing is clean dry and intact. Given the long- acting spinal however we have likely at this point in time missed our window for her to have a physical therapy session before discharge so we will plan to keep her overnight and discharge her in the morning after getting a session in with physical therapy. Exam Vital Signs (past 8 hours): - 07/13/25 09:38 07/13/25 13:10 07/13/25 13:15 Temperature 97.2 F L 97.3 F L Pulse Rate 65 62 59 L Respiratory Rate 18 12 16 Blood Pressure 151/78 H 104/58 L 110/63 Pulse Oximetry 100 98 100 Oxygen Delivery Method Room Air Room Air Room Air Oxygen Flow Rate 07/13/25 13:20 07/13/25 13:25 07/13/25 13:30 Temperature 97.3 F L Pulse Rate 58 L 59 L 59 L Respiratory Rate 16 16 16 Blood Pressure 97/59 L 125/61 121/60 Pulse Oximetry 99 100 100 Oxygen Delivery Method Room Air Room Air Room Air Oxygen Flow Rate 07/13/25 14:49 07/13/25 15:30 Temperature 97.6 F Pulse Rate 58 L 61 Respiratory Rate 16 16 Blood Pressure 128/80 103/58 L Pulse Oximetry 99 99 Oxygen Delivery Method Room Air Oxygen Flow Rate 0 Oxygen Delivery Method Room Air Oxygen Flow Rate 0 [facility] Medical History (Updated 07/06/25 @ 08:46 by Autumn Guadarrama RN) Pelvic fracture Glaucoma Unilateral primary osteoarthritis, right hip PSVT (paroxysmal supraventricular tachycardia) Arthritis of right sacroiliac joint Osteoarthritis of left knee History of fractured pelvis RLS (restless legs syndrome) Allergic rhinitis Mixed hyperlipidemia Wears glasses Chicken pox (~1950) Macular degeneration (~2018) Hearing loss Cataracts, bilateral Surgical History Anesthesia History of cataract removal with insertion of prosthetic lens (~2014) History of hemorrhoidectomy (~2011) H/O knee surgery (~2018) Family History Father Congestive heart failure Brother Cancer Sister Macular degeneration Grandfather Flu Grandmother Cancer Social History details: (Damon), 3 children, 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
--- NOTE | 2025-07-13 17:36 | PC.NURSE ---
Patient to floor around 1545. She had a right total hip done. Dressing is aquacel. Patient is on LR at 100cc/hr. She was medicated prior to coming up to the floor and is comfortable.
[2025-07-13] MEDS: DOCUSATE 100 MG CAPSULE PO (21:07)
[2025-07-13] MEDS: ACETAMINOPHEN 325 MG TABLET 650 MG PO (21:07)
[2025-07-13] MEDS: ASPIRIN EC 81 MG TABLET PO (21:07)
[2025-07-13] MEDS: IBUPROFEN 600 MG TABLET PO (21:07)
[2025-07-13] MEDS: LACTATED RINGERS 1,000 ML 100 ML IV (21:08)
[2025-07-14] MEDS: ACETAMINOPHEN 325 MG TABLET 650 MG PO ×2 (03:16→09:49)
[2025-07-14] MEDS: IBUPROFEN 600 MG TABLET PO ×2 (03:17→09:50)
[2025-07-14 05:38] LABS: Add Manual Diff / Slide Review NO; Hematocrit 31.2 % (36-46); Hemoglobin 10.7 g/dL (12.0-16.0); Lymphocytes Absolute Auto 1000 /uL (1100-4500); Mean Corpuscular HGB Conc 34.2 % (30-36); Mean Corpuscular Hemoglobin 32.0 PG (26-34); Mean Corpuscular Volume 93.6 fL (80-100); Platelet Count 185 X10^3/uL (150-400)
--- NOTE | 2025-07-14 07:18 | P.DS_ITS ---
History of Present Illness History of Present Illness Chief complaint: Right MARGOT anterior *OPB* Narrative: 74-year-old female with a past medical history of paroxysmal supraventricular tachycardia and restless legs syndrome presented to [facility] on 07/13/2025 for a planned anterior right total hip arthroplasty by Dr. Willis. She was consented for this procedure due to chronic right groin pain worse at night that limited her ability to walk distances indicative of right hip osteoarthritis. She underwent preoperative education and counseling prior to her elective surgery. Discharge Providers Provider Discharge Date: 07/14/25 Primary care physician: Jose Enrique Valero MD Consults: 07/13/25 06:00 Consult to Anesthesiology Routine Comment: Consulting Provider: Anesthesiologist Reason for consultation: Regional block for post operative pain control 07/13/25 15:59 Consult to Discharge Planning Routine Comment: Consult to Occupational Therapy Evaluate & Treat Comment: Anterior hip precautions Physician Instructions: Evaluate and treat Consult to Physical Therapy Evaluate & Treat Comment: Anterior hip precautions Physician Instructions: Evaluate and Treat Discharge provider: NICOLE Brownlee Dr, MD Summary Hospital Course Hospital Course: On 07/13/2025 she is brought to the operating room for a right anterior total hip arthroplasty. There were no known immediate complications. She was transferred to recovery unit and then later to the floor for overnight monitoring. Due to long-acting spinal anesthesia, she missed her window for physical therapy on post operative day 0 prior to discharge and she was kept overnight for monitoring with a plan for physical therapy in the morning. There were no acute events overnight. On postoperative day 1 her pain was well- controlled with oral analgesics, she was making urine and her vital signs were stable. At that time she was comfortable with proceeding with the preoperative plan for discharge home on postoperative day 1. Exam Vital Signs (past 8 hours): Oxygen Delivery Method Room Air Oxygen Flow Rate 0 Narrative Exam Narrative: Well-developed, well-nourished, 79-year-old female, no acute distress. Aquacel dressing dry and intact to anterior right hip without ecchymosis or drainage. Nontender on exam. Neurovascularly intact to the right lower extremity including toe flexion-extension, ankle range of motion and knee extension. Sensation grossly intact to light touch distally of the right lower extremity Objective Labs 07/14/25 05:00 Labs: Laboratory Results - last 24 hr 07/14/25 05:00 WBC 12.1 H RBC 3.34 L Hgb 10.7 L Hct 31.2 L MCV 93.6 MCH 32.0 MCHC 34.2 RDW 12.7 Plt Count 185 Neut % (Auto) 84.2 H Lymph % (Auto) 8.3 L [place] % (Auto) 7.4 Eos % (Auto) 0.0 L Baso % (Auto) 0.1 Neut # (Auto) 47164 H Lymph # (Auto) 1000 L [place] # (Auto) 900 Eos # (Auto) 0 Baso # (Auto) 0 PFSH Medical History (Updated 07/06/25 @ 08:46 by Autumn Guadarrama, RN) Pelvic fracture Glaucoma Unilateral primary osteoarthritis, right hip PSVT (paroxysmal supraventricular tachycardia) Arthritis of right sacroiliac joint Osteoarthritis of left knee History of fractured pelvis RLS (restless legs syndrome) Allergic rhinitis Mixed hyperlipidemia Wears glasses Chicken pox (~1949) Macular degeneration (~2018) Hearing loss Cataracts, bilateral Surgical History Anesthesia History of cataract removal with insertion of prosthetic lens (~2014) History of hemorrhoidectomy (~2011) H/O knee surgery (~2017) Family History Father Congestive heart failure Brother Cancer Sister Macular degeneration Grandfather Flu Grandmother Cancer Social History details: (Damon), 3 children, 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 Willis at [facility] on 07/13/2025. The patient is recovering well with appropriate pain control on oral analgesics and is awaiting evaluation by physical therapy with plan for discharge home today.? Her vital signs are stable and she is making urine spontaneously. No bowel movement since surgery. She denied chest pain, nausea, emesis and dyspnea on postoperative day 1 prior to discharge. Hemoglobin 10.7 today. Plan:? * Weightbearing as tolerated to right lower extremity with front wheeled walker? * Anterior hip precautions? * DVT prophylaxis with 81 mg of aspirin twice daily for 6 weeks postoperatively * Continue multimodal analgesia with Tylenol, ibuprofen, tramadol PRN and oxycodone?PRN * Bowel regimen as needed? * Physical therapy evaluation and treatment today? * Follow up with orthopedics 2 weeks post operatively? * All post operative medications ordered at pre operative visit? * Ice to surgical site as needed? * Plan for discharge home today after physical therapy Discharge Plan Discharge Plan Patient Disposition: Home Discharge orders & Medications Discharge Orders: Discharge (Order); Ordered 07/14/25 Ordered By: Janine Acosta Prescriptions: New aspirin 81 mg capsule 81 mg PO BID 45 Days Qty: 90 0RF acetaminophen 500 mg capsule 1,000 mg PO Q8HR Qty: 90 0RF Continued multivitamin Tablet 1 tab PO DAILY ICaps AREDS 4,296 mcg-226 mg-90 mg capsule 1 cap PO BID cholecalciferol (vitamin D3) 50 mcg (2,000 unit) capsule 50 mcg PO DAILY magnesium 210 mg PO DAILY cetirizine [Aller-Boy] 10 mg tablet 10 mg PO DAILY PRN (Reason: Allergy Symptoms) latanoprost 0.005 % drops 1 drp EYE-BOTH ONCE PM pravastatin 10 mg tablet 10 mg PO BEDTIME Qty: 90 3RF pantoprazole 40 mg tablet,delayed release (DR/EC) 40 mg PO DAILY Qty: 30 0RF meloxicam 15 mg tablet 15 mg PO DAILY PRN (Reason: pain) Qty: 30 1RF tramadol 50 mg tablet 50 mg PO Q6H PRN (Reason: pain) Qty: 20 0RF Follow up/Referrals: Jose Enrique Valero MD [Primary Care Provider, Internal Medicine] Puneet Willis MD [Physician, Orthopedic Surgery] Diet/Activity/Treatments Diet: Diet as Tolerated and Low-sodium Activity: Weightbearing as tolerated, maintain anterior hip precautions. Cold/Heat Therapy: Ice to the hip for additional pain control Skin/Wound/Dressing Care Report to your healthcare provider any signs of infection, such as:: chills, fever, night sweats, unusual drainage and unusual redness Dressing: Keep dressing intact, clean and dry until 2 week post-op appointment. No soaking the incision site in pools or tubs. No topical ointments or creams to the incision site. Visit Report/Discharge Packet Instructions: ELFEGO for Hip Replacement, DI for Prescription Opioid Use Stand Alone Forms: Patient Portal/API Print Language: [place] Discharge Data Primary Care Provider: Jose Enrique Valero V Attending Provider: Puneet Willis VTE Deep Vein Thrombosis/Pulmonary Embolism Present on Admission: No IH PROFEE Charge Codes Discharge inpatient/observation: [id number]
[2025-07-14 08:00] VITALS: BP 130/59; PULSE 68; RESP 16; TEMP 36.8; O2SAT 99
--- NOTE | 2025-07-14 08:21 | PT-IP ANOTE ---
PT order received. PT reviewed chart. Pt underwent R MARGOT last date. On Dr. Willis's op note, it states there are no hip precautions. In the orders, the PA wrote anterior hip precautions. PT follows instructions to call ? and PT leaves a message as there is no direct line to a person. PT leaves a message with rehabiliation director as well.
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
--- NOTE | 2025-07-14 09:38 | PT-IP ANOTE ---
PT hears back from Dr. Willis before PT evaluation and he reports no hip precautions for pt.
[2025-07-14] MEDS: PANTOPRAZOLE DR 40 MG TABLET PO (09:50)
[2025-07-14] MEDS: DOCUSATE 100 MG CAPSULE PO (09:50)
[2025-07-14] MEDS: ASPIRIN EC 81 MG TABLET PO (09:51)
--- NOTE | 2025-07-14 10:33 | PC.NURSE ---
D/c packet reviewed with pt at bedside. Discussed prescriptions. Discussed taking OTC stool softeners to help reduce risk of constipation. Discussed safety measures for pain meds and post op. IV removed. Pt exited via w/c with TECHNICAL WRITER AND EDITOR to private vehicle.
--- NOTE | 2025-07-14 11:00 | OT.IP.EVAL ---
Current Diagnoses Unilateral primary osteoarthritis, right hip (07/13/25) Surgery Performed Operation Date: 07/13/25 10:45 Actual Procedures p Total Hip Arthroplasty/Anterior Approach(Right) - Puneet Willis MD Past Medical History (Last Updated 07/06/25 @ 08:46 by Autumn Guadarrama RN) Allergic rhinitis Arthritis of right sacroiliac joint Cataracts, bilateral Chicken pox (~1950) Glaucoma Hearing loss History of fractured pelvis Macular degeneration (~2018) Mixed hyperlipidemia Osteoarthritis of left knee Pelvic fracture PSVT (paroxysmal supraventricular tachycardia) RLS (restless legs syndrome) Unilateral primary osteoarthritis, right hip Wears glasses Surgical History (Last Reviewed 06/24/25 @ 09:49 by Jose Enrique Valero MD) Anesthesia H/O knee surgery (~2017) History of cataract removal with insertion of prosthetic lens (~2014) History of hemorrhoidectomy (~2011) Occupational Therapy Inpatient Evaluation/Re-Eval M1 PT/OT-IP Prior Functional Status Start: 07/14/25 09:25 Freq: NEEDED Status: Discharge Protocol: Document 07/14/25 09:01 MB (Rec: 07/14/25 09:37 MB Desktop) Medical Review Prior Functional Status Medical History Yes Reviewed Diet/Fluid Regular Consistency Communication [place], pt puts in her hearing aides Mobility and Gait Cane or RW use in the home Social History Household Members spouse Living Arrangements House Number of Floors ( One Floor Floors) Home Environment High Toilet,Walk in Shower Home Equipment Front Wheel Walker,Straight Cane,Leg Compressed Gas Tester,Grab Bars In Shower Additional Social HOB raises and lowers History Comment M1 PT/OT-IP Prior Functional Status Start: 07/14/25 10:50 Freq: NEEDED Status: Active Protocol: Document 07/14/25 10:51 [facility] (Rec: 07/14/25 10:59 [facility] Desktop) Medical Review Prior Functional Status Medical History Yes Reviewed Diet/Fluid Regular Consistency Communication [place], pt puts in her hearing aides Mobility and Gait Cane or RW use in the home Activities of Daily Pt needing assist do shoes from her spouse Living and IADL's Social History Household Members spouse Living Arrangements House Number of Floors ( One Floor Floors) Home Environment High Toilet,Walk in Shower Home Equipment Front Wheel Walker,Straight Cane,Hand Held Shower,Leg Compressed Gas Tester,Long Handled Shoe Horn,Dental Aide,Sock Aid,Grab Bars In Shower Additional Social HOB raises and lowers History Comment M2 OT-IP Current Condition Start: 07/14/25 10:50 Freq: Status: Active Protocol: Document 07/14/25 10:51 [facility] (Rec: 07/14/25 10:59 [facility] Desktop) Occupational Therapy Current Condition Current Condition Evaluation Date 07/14/25 Treatment Diagnosis S/P R MARGOT Diagnosis Onset Date 07/13/25 M3 OT- IP Subjective and Pain Start: 07/14/25 10:50 Freq: Status: Active Protocol: Document 07/14/25 10:51 [facility] (Rec: 07/14/25 10:59 [facility] Desktop) OT- Subjective Occupational Therapy Visit Type Type Initial Evaluation Visit Start Time 09:15 Visit Stop Time 09:45 Occupational Therapy Visit Comments Patient Comments Pt agreed to get dressed. Patient/Caregiver TO go home. Goals OT Pain Assessment Pain When Pain Assessed At Rest Pain Present Pain Present Pain Reported Location Right Hip Intensity 4 Scale Used Numeric (0 - 10) M4 OT- IP ADL's Start: 07/14/25 10:50 Freq: Status: Active Protocol: Document 07/14/25 10:51 [facility] (Rec: 07/14/25 10:59 [facility] Desktop) OT [id number] General Evaluation Self-Feeding Ability Independent OT ADL-Grooming Comments OT Grooming Comments Not performed. OT ADL-Oral Care Comments Oral Care Comments Not performed. OT ADL-Dressing General Eval Lower Body Dressing Standby Assistance,Maximum Assistance Ability Areas Needing Socks,Shoes Assistance Comments OT Dressing Comments Able to use and practice LB dressing equipment with pt. Educated to dress the RLE first and take out last. OT ADL-Toileting Comments OT Toileting Pt would benefit from BSC. Suggested use of pad at Comments night so not to hurry to the bathroom and night and ask her to assist. OT ADL-Bathing Comments OT Bathing Comments SPoke on care of the dressing for showering needs. Pt will benefit from a shower chair. M5 OT- IP IADL's Start: 07/14/25 10:50 Freq: Status: Active Protocol: Document 07/14/25 10:51 [facility] (Rec: 07/14/25 10:59 [facility] Desktop) OT-Instrumental Activities of Daily Living Home Safety Awareness Awareness of Need Good Awareness for Assistance at Home Ability to Problem Able to Problem Solve Solve Emergency Situations Medication Management Medication No Deficits Identified Management Money Management Money Management No Deficits Identified Meal Preparation Meal Preparation Pt's to assist. Comments Home Health Scheduler Home Health Scheduler Pt's to assist. Comments M6 OT- IP Functional Cognition Start: 07/14/25 10:50 Freq: Status: Active Protocol: Document 07/14/25 10:51 [facility] (Rec: 07/14/25 10:59 [facility] Desktop) Cognitive Factors Limiting Selfcare Function Cognitive Ability Level of Alertness Alert Patient Orientation Name,Age,Birthday,Month,Date,Year,Day of Week,Place, Situation Attention Span Capable of Focused Attention,Capable of Sustained Ability Attention Ability to Follow Able to Follow One Step Commands Commands Memory Description No Deficits Noted Safety Awareness No Deficits Noted Problem Solving No deficits Noted Ability Cognitive Comments Cognitive Assessment Pt needing initial vc to push up with her hands when Comments coming to stand and reaching back to sit down. OT- Vision and Hearing OT- Hearing Assessment OT- Hearing WFL Assessment OT- Vision Assessment Visual Acuity WFL,Glasses All The Time Visual Attentiveness WFL Occular Pursuits WFL M7 OT- IP Mobility and Balance Start: 07/14/25 10:50 Freq: Status: Active Protocol: Document 07/14/25 10:51 [facility] (Rec: 07/14/25 10:59 [facility] Desktop) OT-Transfer Assessment Sit to and From Stand Sit to and from Standby Assistance Stand Transfers Transfer Ability Standby Assistance Technique Transfer Destination Bed,Chair Transfer Technique Stand Step Pivot Devices Transfer Assistive Gait Belt,Front Wheeled Walker Devices Comments Mobility Comments Pt able to stand with SBA and able to walk around to the chair with the FWW. Noted pt'e right foot while walking tends to externally rotate out. OT- Balance Assessment Sitting Balance and Reactions Static Sitting Normal Balance Ability Dynamic Sitting Good Balance Ability Standing Balance and Reactions Static Standing Good Balance Ability Dynamic Standing Fair Balance Ability M9 OT- IP Assessment and Plan Start: 07/14/25 10:50 Freq: Status: Active Protocol: Document 07/14/25 10:51 [facility] (Rec: 07/14/25 10:59 [facility] Desktop) OT Summary Assessment and Plan Potential Rehabilitation Excellent Potential Analytic Complexity Low at Evaluation Summary OT Impairments Pain,Balance,Functional Mobility,Dressing,Toileting, Bathing,Toilet Transfers,Shower Transfers Progress Towards Progressing Toward Goals Goals Assessment Summary Pt low complexity and main barriers are pain and will benefit from getting a BSC and shower chair. Pt is yet to schedule outpt PT. Pt to go home with assist. Goals Dressing Goal Independent,Long Handled Shoe Horn,Dental Aide,Sock Aid Toileting Goal Independent Bathing Goal Independent Toilet Transfer Goal Independent Shower Transfer Goal Independent Days to Meet Goals 5 Treatment Plan OT Treatment Plan ADL Training,Functional Mobility,Patient/Family Education,Discharge Planning Discharge Recommendations OT Discharge Home with Assistance,Outpatient PT Recommendations Home Equipment Needs BSC, shower chair Transportation Needs Private Vehicle at Discharge
--- NOTE | 2025-07-14 11:29 | CM.DANOTE ---
DCP Assessment note pt is a 79yo F POD1 total right hip. PCP Anjum Payer Medicare and for life PUTTY MIXER AND APPLIER reviewed EMR. per PT/OT doing well, rec home with assistance. per chart review, [facility] has necessary DME post op. per chart cleared for dc home Pt left prior to being seen by this PUTTY MIXER AND APPLIER P: dc today home with spouse support and OP f/u. no identified barriers to safe dc home at this time. will continue to follow as needed SHALONDA Figueroa Discharge Planning/Care Management CM Discharge Assessment Start: 07/13/25 08:50 Freq: Status: Discharge Protocol: Document 07/14/25 11:23 SL (Rec: 07/14/25 11:29 SL [id number]) Discharge Planning Assessment Assigned Discharge SHALONDA Cloud Resident Care Director DPOA/Assigned spouseDamon Designee Name Contact Information [phone] Advance Directives? Yes Advance Directives Yes on File History Provided By Patient Prior Living House Arrangements Household Members spouse Type of Drives own vehicle transporation used prior to admit Willing to Return to No Facility? Independent with ADL Yes 's Is patient alert and Yes oriented? Comment spouse to assist with putting on shoes post op DME Already Rented / FWW / Walker Owned Barriers to No Discharge Discharge Plan Home Transportation spouse Arrangement Referrals Initiated None needed Review Status In Process Please Provide Date 07/14/25 Initial DC Assessment Was Performed Next Review Type Continued Stay Review Pre-Anesthesia Assessment Start: 07/06/25 08:38 Freq: Status: Complete Protocol: Document 07/06/25 08:38 LB (Rec: 07/06/25 09:25 LB [id number]) Pre-Anesthesia Assessment PAC Comment 07/06/25 Phone assessment. Patient Information Phone Assessment Reviewed Via Assessment Completed Patient With Diagnostic Results BMP/CMP,CBC Comment 04/21/25 at . Primary Care Jose Enrique Valero Provider Medical Clearance Yes Received Seen Specialist in Yes Last 12 Months Specialist Seen Orthopedist Primary Language Moldovan Preferred Language Moldovan Engineering Technologist Required No Height 172.72 cm Weight 70.307 kg Body Mass Index (BMI 23.6 ) Hearing Ability Use of Hearing Aid Visual Impairment Partially Limited Visual Assist Glasses Dentition Type Teeth, Natural Present Barriers to Learning None Hx Anesthesia No Reactions Hx Family Anesthesia No Reaction Hx Malignant No Hyperthermia Hx Blood Yes Transfusions Hx Blood Transfusion No Reaction Anesthesia Review No Requested Turf Sales Person No alcohol intake current Alcohol intake holidays/special occasions only frequency Smoking Status Never smoker Substance Use Type [ does not use #R] Comment Right hip. Musculoskeletal Abnormal Gait,Difficulty Walking,Joint Pain Symptoms History of Falling ( No Recent or History of ) Patient is No completely paralyzed or completely immobile Mental Status Oriented to own ability Comment Will bring walker. Is patient on oxygen No ? Does patient have No ZHONG/SOB Hx Sleep Apnea No Currently Taking a No Beta Van Can You Climb a Yes Flight of Stairs Without SOB Hx Chest Pain No Hx SOB No Hx Syncope or No Dizziness Anti-Coagulant No Therapy Has a Manager Grant No Cardiac Testing Yes: Zio 03/13. Hx Pacemaker/ICD No Cardiac Clearance Not Applicable Received Dysphagia No Gastrointestinal None Symptoms Chronic UTI No Urinary Catheter No Present Hx Urinary Self No Catheterization Diabetes No HgbA1C 5.0 Date 04/21/25 Patient No Lactating No Presence of External Yes: Bilat IOL, left knee. or Internal Medical Devices Have you had any No close contact with someone diagnosed with COVID-19? Are you experiencing No symptoms any of these symptoms? Received a COVID Yes vaccine? Comment Denies covid last 8 weeks. Marital Status Lives With spouse Number of Stairs To 0 stairs. Enter/Railing? Support System Spouse Does the Patient Yes Have Assistance After Surgery Patient Discharge Return Home Plan Description Additional comment Advised same day surgery by surgeon. Feels Safe in Yes Current Environment Do you have a plan No Plan to hurt yourself or others? Emergency Contact Damon Holly - Name Emergency Contact [phone] Phone Number Advance Directives? Yes Advance Directives No on File Requested Patient Yes Bring Advanced Directives DOS Power of Retail Sales Clerk Yes Power of Retail Sales Clerk Damon Holly - Name Power of Retail Sales Clerk [phone] Phone Number PAC Instructions Assistance for 24 hours post-op,Do not shave/clip surgical site,Durable medical equipment,Medications to take/avoid,No ETOH/petroleum product on skin DOS,NPO, Post-op transportation,Pre-surgical wash,Sensory aids, Sturdy shoes/comfortable clothes,Do not bring valuables and remove jewelry
== END 2025-07-14 10:40 | disposition home or self-care (01) ==
LOC: OR 08:49 → AC 08:50
PROVIDERS: Physician Assistant Surgical; Family Provider Internal Medicine; PCP Internal Medicine; Referring Provider Orthopaedic Surgery Adult Reconstructive Orthopaedic Surgery; Visit Provider Orthopaedic Surgery Adult Reconstructive Orthopaedic Surgery
PROC: (CPT 27130; principal; 2025-07-13 10:45)
DX: M16.11 Unilateral primary osteoarthritis, right hip (principal); G25.81 Restless legs syndrome; Z87.898 Personal history of other specified conditions; M25.751 Osteophyte, right hip
CPT/HCPCS: 27130; 36415; 73502; 76000; 85025; 97161; 97165; 97535; C1776; C1713; J0689; J1100; J1885; J2405; J2704; J3475

== ENCOUNTER → 2025-07-29 09:57 | Outpatient (CLI) | payer MEDICARE, OTHER, SELFPAY ==
[2025-07-13 16:28] VITALS: BMI 23.6
--- NOTE | 2025-07-29 10:01 | DI.CT.S_ITS ---
PROCEDURE: CT HIP RIGHT WITHOUT CON INDICATIONS: r/o failing hardware TECHNIQUE: Noncontrast 3 mm axial sections acquired through the bony pelvis. Additional 3 mm axial sections acquired through the symptomatic hip joint, with coronal and sagittal reformats. COMPARISON: [facility], CR, XR HIP W PEL RT 2V, 07/13/2025, 13:10. [facility], CR, XR HIP W PEL RT 2V, 07/13/2025, 11:59. [facility], CR, ORTHO-XR HIP RT 2V, 07/28/2025, 15:33. [facility], CR, XR HIP W PEL IF DONE RT 2V, 01/22/2025, 9:27. FINDINGS: Image quality: Diagnostic. Bones: Patient is status post right total hip arthroplasty. Significant beam hardening artifacts are noted from prosthesis. There is and acute appearing comminuted periprosthetic fracture involving right proximal femur with fracture line extending from greater trochanter to lesser trochanter with slight superior and anterior displacement of greater trochanteric fragment and medial and posterior displacement of the lesser trochanteric fragment. No other fracture or dislocation. No evidence of hardware loosening. Moderate left hip joint osteoarthritic changes are seen. Degenerative disc disease are noted in visualized lower lumbar spine. No suspicious bony lesions. Soft tissues: There is soft tissue edema and swelling surrounding low right proximal femoral shaft fracture site. Small right hip joint effusion is also likely present. No discrete drainable fluid collection. No abnormal soft tissue calcifications. The visualized pelvis shows no free fluid or free air. Bladder wall thickness is normal. No abnormal bowel wall thickening. No pelvic lymphadenopathy. IMPRESSION: 1. Prior right total hip arthroplasty with acute appearing comminuted and slightly displaced periprosthetic fracture involving proximal right femur as above. 2. Osteoarthritic changes throughout rest of the bony pelvis. No other fracture or dislocation. Degenerative disc disease in visualized lower lumbar spine. 3. Soft tissue swelling around right femoral shaft fracture site. No abnormal soft tissue calcifications. No drainable fluid collection. Small joint effusion, no calcified intra-articular loose bodies. No peritoneal free fluid or free air. Dictated by: Nolan Rodriguez M.D. on 07/29/2025 at 10:45 Approved by: Nolan Rodriguez M.D. on 07/29/2025 at 10:48
== END ==
LOC: CT 09:58
PROVIDERS: Family Provider Internal Medicine; PCP Internal Medicine; Referring Provider Internal Medicine; Visit Provider Orthopaedic Surgery Adult Reconstructive Orthopaedic Surgery
DX: T84.114A Breakdown (mechanical) of internal fixation device of right femur, initial encounter (principal); M51.369 Other intervertebral disc degeneration, lumbar region without mention of lumbar back pain or lower extremity pain; M79.89 Other specified soft tissue disorders; Z96.649 Presence of unspecified artificial hip joint
CPT/HCPCS: 73700